=== PATIENT | male | born 1950 | race Caucasian/White ===

== ENCOUNTER → 2023-12-11 13:23 | Outpatient (REF) | payer MEDICARE, SELFPAY | LOC: CLAB 13:23 | PROVIDERS: ATTENDING PHYSICIAN Urology | DX: C61 Malignant neoplasm of prostate (principal) | CPT/HCPCS: 88305; 88344 ==

== ENCOUNTER → 2024-02-12 13:02 | Outpatient (REF) | payer MEDICARE, SELFPAY | LOC: RAD 13:02 | PROVIDERS: ATTENDING PHYSICIAN Internal Medicine Cardiovascular Disease; FAMILY PHYSICIAN Internal Medicine | DX: R00.1 Bradycardia, unspecified (principal); I65.29 Occlusion and stenosis of unspecified carotid artery; I25.10 Atherosclerotic heart disease of native coronary artery without angina pectoris; I10 Essential (primary) hypertension; I25.5 Ischemic cardiomyopathy; I44.2 Atrioventricular block, complete | CPT/HCPCS: 93225; 93226; 93880 ==

== ENCOUNTER → 2024-06-13 13:37 | Outpatient (REF) | payer MEDICARE, SELFPAY | LOC: RAD 13:37 | PROVIDERS: ATTENDING PHYSICIAN Nurse Practitioner Adult Health; FAMILY PHYSICIAN Internal Medicine | DX: M25.571 Pain in right ankle and joints of right foot (principal); M25.471 Effusion, right ankle; M79.671 Pain in right foot | CPT/HCPCS: 73610; 93971 ==